=== PATIENT | female | born 1960 | race Caucasian/White ===

== ENCOUNTER 2019-08-24 07:34 | Day surgery (SDC) | payer OTHER, BC ==
[2019-08-22 17:20] VITALS: BMI 32.0
--- NOTE | 2019-08-24 09:32 | HP ---
[facility] - Chief Complaint Chief Complaint: left knee pain - Past Medical History Allergies/Adverse Reactions: Allergies Allergy/AdvReac Type Severity Reaction Status Date / Time No Known Drug Allergies Allergy Verified 08/22/19 17:13 - Current Medications Current Medications: Home Medications Medication Instructions Recorded Levothyroxine [Synthroid -] 125 mcg PO DAILY #1 tablet 06/08/13 Nebivolol HCl [Bystolic] 10 mg PO DAILY 05/30/19 Amlodipine Besylate 5 mg PO DAILY 08/24/19 Oxycodone HCl/Acetaminophen 1 tab PO Q6H #20 tablet MDD 4 08/24/19 [Percocet 5-325 mg Tablet] Pravastatin Sodium [Pravachol] 20 mg PO DAILY 08/24/19 Satellite Physical Exam - Physical Examination Vital Signs: Vital Signs Period Temp Pulse Resp BP Sys/Fonseca Pulse Ox Last 24 Hr 98.3 F 71 16 127/86 95 General Appearance: Well Nourished, Well Developed, Alert & Oriented x3 ENT: Clear Lung: Normal air movement Extremities: Other (left knee- + swelling, + ttp, decr rom, + mcmurrays, nvi) Neurological: Intact, Alert, Oriented Satellite Impression/Plan - Impression/Plan Impression: left knee internal derangement Operative Procedure: left knee arthroscopy Date to be Performed: 08/24/19
[2019-08-24] MEDS ORDERED: LIDOCAINE 1%/EPI 1:100000 (20 ML MULTI DOSE VIAL) INF ONE (09:51)
[2019-08-24] MEDS ORDERED: BUPIVACAINE HCL/PF 0.5% (5 MG/ML) 30 ML VIAL IJ ONE (09:55)
[2019-08-24] MEDS ORDERED: LIDOCAINE 1%/EPI 1:100000 (20 ML MULTI DOSE VIAL) IJ ONE (10:00)
[2019-08-24] MEDS ORDERED: BUPIVACAINE HCL/PF 0.5% (5MG/ML) 10 ML VIAL IJ ONE (10:00)
--- NOTE | 2019-08-24 10:04 | OP ---
Operative Note - Note: Operative Date: 08/24/19 ([facility]) Pre-Operative Diagnosis: left knee internal derangement Operation: left knee arthroscopy with debridement Post-Operative Diagnosis: Same as Pre-op Surgeon: Elijah Mcadams Anesthesiologist/FACILITY SERVICE ASSOCIATE: Yimi Huang Anesthesia: General, Local Specimens Removed: shavings
[2019-08-24] MEDS ORDERED: ONDANSETRON 4 MG/2 ML VIAL IVPUSH PRN (10:11)
[2019-08-24] MEDS ORDERED: oxyCODONE HCL 5 MG TABLET PO PRN (10:11)
[2019-08-24] MEDS ORDERED: LACTATED RINGERS SOLUTION 1,000 ML IV SCH (10:15)
[2019-08-24 11:37] VITALS: PULSE 60; TEMP 97.5
[2019-08-24 12:37] VITALS: BP 102/67
--- NOTE | 2019-08-24 21:17 | OP ---
DATE OF OPERATION: 08/24/2019 PREOPERATIVE DIAGNOSIS: Internal derangement, left knee. POSTOPERATIVE DIAGNOSIS: Internal derangement, left knee. PROCEDURE: Arthroscopy with debridement. SURGICAL ATTENDING: Elijah Mcadams MD ANESTHESIA: LMA. CLOSURE: Nylon 4-0. COMPLICATIONS: None. CONDITION: To recovery in stable condition. DESCRIPTION OF OPERATIVE PROCEDURE: Patient was taken to the operating room on August 24, 2019. General anesthesia with LMA was administered by the anesthesiologist. Left lower extremity was prepped and draped in the usual sterile fashion. The medial and lateral infrapatellar portal sites were infiltrated with 1% Xylocaine with epinephrine, and both portals were then made with a 15 blade followed by blunt trocar. The scope trocar was placed in the lateral portal and up into the suprapatellar pouch. Pouch was inflated with a cocktail of 10 mL of 1% Xylocaine and 10 mL of 0.5% Marcaine and 20 mL of arthroscopic saline. After allowing the anesthetic to work in the knee, the procedure was performed. The pouch was visualized to be clean. The medial and lateral gutters were visualized to be clean. The undersurface of the patella and trochlea were visualized to be intact. With valgus stress on the knee, the medial compartment was entered, and the medial meniscus visualized and probed and found to be intact. The medial femoral condyle was and found to be intact as well as the medial tibial plateau. At 90 degrees, the ACL was visualized and probed, found to be intact. In a figure-4 position, the lateral compartment was entered. The lateral meniscus was visualized, probed, found to be intact. Lateral femoral condyle was entered and found to be intact as well as the lateral tibial plateau. There was a large amount of scar and fibrous tissue anterior to the knee. This was debrided using a shaver. This exposed the trochlea which had a small area essentially of arthritis and a small area of crab meat on the apex of the patella, but for the most part, they were intact. The knee was then irrigated with copious amounts of irrigation, and the fluid was drained from the knee. The portals were closed. Prior to pulling the trocar, 20 mL of 0.5% Marcaine were infused through the outflow portal for postoperative analgesia. A sterile pressure dressing was placed on the knee. Patient was awakened from anesthesia and transferred to recovery in stable condition. No complications. Estimated blood loss: Negligible. Sveta [id number]
--- NOTE | 2019-08-25 16:43 | PATH ---
Surgical Pathology Report Patient Name: ROGELIO JIMENEZ [facility]. Rec. #: [id number] /Age/Gender: 1960 (Age: 58) / F Account: [id number] Location: [facility] SURGICAL Taken: 08/24/2019 Received: 08/24/2019 Reported: 08/25/2019 Physicians: Eder Doss M.D. Specimen(s) Received LEFT KNEE SHAVINGS Clinical History Left knee tear Final Diagnosis LEFT KNEE SHAVINGS: FRAGMENTS OF CARTILAGE, FIBROADIPOSE TISSUE AND SYNOVIAL TISSUE WITH FOCAL FIBROSIS. Electronically Signed Ene Chamorro M.D. Gross Description Received in formalin, labeled "left knee shavings," is a 4.3 x 3.2 x 0.3 cm. aggregate of escudero-yellow soft tissue fragments. A field service representative portion is submitted in one cassette. /08/24/201908/24/2019
== END 2019-08-24 12:40 | disposition home or self-care (01) ==
LOC: JASU-SURG 07:34
PROVIDERS: ATTEND Orthopaedic Surgery
PROC: 0SBD4ZZ Excision of Left Knee Joint, Percutaneous Endoscopic Approach (ICD-10-PCS; principal; 2019-08-24 09:30)
DX: M23.8X2 Other internal derangements of left knee (principal)
CPT/HCPCS: 94760